=== PATIENT | male | born 1955 | race Caucasian/White ===

== ENCOUNTER 2018-12-20 16:14 | Emergency (ER) | payer MEDICARE, OTHER ==
[2018-12-20] MEDS ORDERED: traMADol HCl 50 MG TAB ONE (17:00)
--- NOTE | 2018-12-20 19:01 | RAD ---
LEFT WRIST THREE VIEWS: 12/20/18 Comparison is made with an older study dated 11/08/09. There is an acute spiral fracture of the distal ulna that extends into the end of the bone at the wri st. There is slight displacement of fragments. As best as I can tell, the radius appears intact. A li ttle periosteal prominence along the interosseous margin of the distal radial shaft is new since 2009 but probably is not acute. The quality of the bone in the distal radius is somewhat spotty with a fe w lucencies scattered throughout as well as a small cyst near the articular surface of the radius. My suspicion is that this is just evolving osteopenia, through occasionally neoplastic disease of the b one can show up in this fashion. My current suspicion of such is low. The carpal bones showed no acut e fracture. Severe degenerative changes are present in the first carpometacarpal joint as before due to an old injury at the base of the first metacarpal. The level of degeneration has worsened somewhat in the interval. An old well healed fracture of the distal fifth metacarpal is apparent. IMPRESSION: 1. Acute fracture of the distal ulna with slight displacement. 2. Severe degenerative changes of the first carpometacarpal joint. 3. Somewhat spotty appearance of the distal radial bone mass, though probably more related to os teopenia than not. See above. POS: HOME
== END 2018-12-20 17:26 | disposition home or self-care (01) ==
LOC: BURERS 16:14
DX: S52.602A Unspecified fracture of lower end of left ulna, initial encounter for closed fracture (principal); I10 Essential (primary) hypertension; Z86.73 Personal history of transient ischemic attack (TIA), and cerebral infarction without residual deficits; Z79.899 Other long term (current) drug therapy; Z79.82 Long term (current) use of aspirin; X50.1XXA Overexertion from prolonged static or awkward postures, initial encounter
CPT/HCPCS: 29125

== ENCOUNTER 2022-07-30 12:51 | Emergency (ER) | payer MEDICARE, OTHER | END 2022-07-30 16:29 | disposition home or self-care (01) | LOC: BURERS 12:51 | DX: S22.42XA Multiple fractures of ribs, left side, initial encounter for closed fracture (principal); I10 Essential (primary) hypertension; W18.30XA Fall on same level, unspecified, initial encounter ==

== ENCOUNTER 2022-09-28 02:20 | Emergency (ER) | payer MEDICARE, OTHER ==
[2022-09-28 03:16] LABS: #Basophils 0.1 thou/uL (0.0-0.2); #Lymphocytes 1.3 thou/uL (1.20-3.40); #Monocytes 0.9 thou/uL (0.11-0.59); #Neutrophils 8.6 thou/uL (1.40-6.50); %Basophils 0.6 % (0.0-1.0); %Eosinophils 0.2 % (0.0-10.0); %Lymphocytes 11.9 % (21.0-51.0); %Monocytes 8.4 % (0.0-10.0); %Neutrophils 78.9 % (42.0-75.0); Hemoglobin 12.2 g/dL (14.0-18.0); Mean Corpuscular HGB CONC 32.7 g/dL (32.0-36.0); Mean Corpuscular Hemoglobin 29.6 pg (27.0-31.0); Mean Corpuscular Volume 90.5 fl (78.0-98.0); Mean Platelet Volume 7.2 fL (7.4-10.4); Platelet Count 172 10x3/uL (130-400); RBC Distribution Width 13.5 % (11.5-14.5); Red Blood Cell (RBC) Count 4.11 mill/uL (4.70-6.10); White Blood Cell (WBC) Count 10.9 10x3/uL (4.8-10.8)
[2022-09-28] MEDS ORDERED: Acetaminophen/Codeine 30-300mg Tablet ONE (03:22)
[2022-09-28] MEDS ORDERED: Guaifenesin DM 100-10/5 ML UDCUP ONE (03:22)
[2022-09-28 03:32] LABS: ALT (SGPT) 35 U/L (8-55); AST (SGOT) 36 U/L (5-34); Albumin 3.8 g/dL (3.4-4.8); Alkaline Phosphatase 67 U/L (40-110); Anion Gap 12 mmol/L (10-20); Bilirubin, Total 0.4 mg/dL (0.2-1.2); Calc. Creatinine Clearance 0 mL/min (70-130); Calcium 8.7 mg/dL (7.8-10.44); Carbon Dioxide 26 mmol/L (23-31); Chloride 106 mmol/L (98-107); Estimated GFR 83; Glucose 127 mg/dL (80-115); Potassium 4.1 mmol/L (3.5-5.1); Sodium 140 mmol/L (136-145)
[2022-09-28 03:36] LABS: BUN (Urea Nitrogen) 11 mg/dL (8.4-25.7); Globulin 2.7 g/dL (2.4-3.5); Protein, Total 6.5 g/dL (5.8-8.1)
== END 2022-09-28 04:32 | disposition home or self-care (01) ==
LOC: BURERS 02:20
DX: R05.9 Cough, unspecified (principal); I10 Essential (primary) hypertension; E78.5 Hyperlipidemia, unspecified; Z79.899 Other long term (current) drug therapy
CPT/HCPCS: 36415; 70360; 71045; 80053; 82553; 84484; 85025; 93005; J1100

== ENCOUNTER 2022-09-28 16:02 | Emergency (ER) | payer MEDICARE, OTHER ==
[2022-09-28] MEDS ORDERED: Dexamethasone 10 MG/ML VIAL ONE (16:41)
== END 2022-09-28 18:00 | disposition home or self-care (01) ==
LOC: BURERS 16:02
DX: J02.9 Acute pharyngitis, unspecified (principal); I10 Essential (primary) hypertension; E78.5 Hyperlipidemia, unspecified
CPT/HCPCS: 70360; J1100

== ENCOUNTER 2023-06-04 15:09 | Emergency (ER) | payer MEDICARE, OTHER | END 2023-06-04 16:00 | disposition home or self-care (01) | LOC: BURERS 15:09 | DX: U07.1 COVID-19 (principal); J06.9 Acute upper respiratory infection, unspecified; I10 Essential (primary) hypertension | CPT/HCPCS: 99283 ==